=== PATIENT | female | born 1965 ===

== ENCOUNTER → 2018-05-25 21:29 | Outpatient (REF) | payer OTHER, SELFPAY ==
[2018-05-25 22:44] LABS: Free T3, Triiodothyronine Free 4.16 pg/mL (2.77-5.27); T4 Total Thyroxine 5.84 ug/dL (5.5-11.0)
[2018-05-25 22:57] LABS: Thyroid Stimulating Hormone 0.28 uIU/mL (0.47-4.68)
[2018-05-28 15:30] LABS: Progesterone < 0.5 ng/mL
[2018-05-28 21:36] LABS: Estrogen 169.2 pg/mL
== END ==
LOC: LAB 21:29
PROVIDERS: Visit Provider Naturopath
DX: N95.1 Menopausal and female climacteric states (principal); E03.9 Hypothyroidism, unspecified
CPT/HCPCS: 36415; 82672; 84144; 84402; 84403; 84436; 84443; 84481